=== PATIENT | female | born 1960 | race Caucasian/White ===

== ENCOUNTER 2020-12-23 06:10 | Day surgery (SDC) | payer OTHER ==
[~2020-12-23 06:10] MED LIST: ASACOL HD800 MG PO; CANASA1000 MG/SU RC; CATAFLAM50 MG PO; DICY20TA PO; OXYC1TAB9 PO; PROTONIX40 MG PO; SYNTHROID50 MCG PO; WELLBUTRIN SR150 MG PO
== END 2020-12-23 10:35 | disposition home or self-care (01) ==
LOC: AMB-ENDOS 06:10
PROVIDERS: ATTEND Surgery
DX: D12.4 Benign neoplasm of descending colon (principal); D12.5 Benign neoplasm of sigmoid colon; K64.8 Other hemorrhoids; Z20.822 Contact with and (suspected) exposure to COVID-19

== ENCOUNTER → 2022-06-15 | Outpatient (CLI) | payer OTHER | END | disposition home or self-care (01) | LOC: MRI 11:00 | DX: M54.16 Radiculopathy, lumbar region (principal) | CPT/HCPCS: 72148 ==